=== PATIENT | female | born 2000 | race Two or more races ===

== ENCOUNTER → 2024-09-10 | Outpatient (CLI) | payer MEDICAID, SELFPAY ==
--- NOTE | 2024-09-10 16:21 | XR_ITS ---
Examination: Wrist, right 3 views Technique: Wrist AP, oblique, lateral 3 views Date and time of exam: September 10, 2024 1625 hrs. Indications: Sports injury to the wrist May 2024 with persistent pain Findings: No acute fracture No dislocation No foreign body Impression: No acute fracture
--- NOTE | 2024-09-10 16:21 | XR_ITS ---
Examination: Hand, right 3 views Technique: Hand AP, oblique, lateral 3 views Date and time of exam: September 10, 2024 1625 hrs. Indications: Sports injury to the hand May 2024 with persistent pain Findings: No acute fracture No dislocation No foreign body Impression: No acute fracture
== END | disposition home or self-care (01) ==
PROVIDERS: PCP Physician Assistant Medical; Referring Provider Nurse Practitioner Gerontology; Visit Provider Nurse Practitioner Gerontology
DX: M79.641 Pain in right hand (principal); M25.531 Pain in right wrist; S69.91XS Unspecified injury of right wrist, hand and finger(s), sequela; Y93.79 Activity, other specified sports and athletics
CPT/HCPCS: 73110; 73130

== ENCOUNTER 2024-12-05 14:51 | Outpatient (RCR) | payer MEDICAID, SELFPAY | END 2024-12-12 23:59 | disposition home or self-care (01) | LOC: CPTX 14:51 | PROVIDERS: PCP Surgery Surgery of the Hand; Referring Provider Surgery Surgery of the Hand; Visit Provider Surgery Surgery of the Hand | DX: Z53.8 Procedure and treatment not carried out for other reasons (principal) ==

== ENCOUNTER 2025-01-08 10:30 | Outpatient (RCR) | payer MEDICAID, SELFPAY ==
--- NOTE | 2024-12-16 11:42 | PTNOTE_ITS ---
PT OP Initial Eval Patient Information Outpatient Physical Therapy Treatment Date: 12/16/24 Visit Reasons: RT hand surgery Medical Diagnosis: [id number]; m79.641 Treatment Dx #1: Right Hand Pain Treatment Dx #2: Right 1st Digit Mobility Deficits Start of Care: 12/16/24 Date of Onset: 10/31/24 Smoking Status Smoking Status: Never smoker Initial Assessment Subjective: Pt is a 24 y/o female s/p right thumb UCL reconstruction 10/31/24 due to volleyball injury. Pt still has pain (4/10) with activities. Pt has limitation with lifting, gripping, chores, self care, cooking, cleaning, work duties, and performing recreational activities. 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 Pt will benefit from physical therapy to increase ROM, strength, and work on hand dexterity Short Term and Longterm Goals 1) Increase right thumb AROM WFL in 8 wks to be able to perform chores 2) Decrease hand pain to 2/10 in 8 wks to be able to perform self care activities 3) Increase right rn psychiatric strength to 50 lbs in 8 wks to be able to perform gripping activities 4) Increase wrist MMTs grossly to 4/5 in 8 wks to be able to perform recreational activities 5) Indep with HEP Treatment Plan 1) Manual Therapy 2) Therapeutic Activities 3) Therapeutic Exercises 4) Modalities (ice, heat) Frequency and Duration: 2 x wk for 8 wks Certification Dates: 12/16/24 to 03/18/25 Procedure Charges OP PT Eval Mod Complex 30 minutes: Yes
--- NOTE | 2024-12-18 12:02 | PT.ODAYNRPT ---
PT Outpatient Daily Note OP Daily Note Outpatient Physical Therapy Treatment Date: 12/18/24 Visit Reasons: RT hand surgery Subjective: Pt's hand and thumb is stiff. Pt mentioned she was very sore after last session. Objective: Please see flow chart for list of ther ex performed Assessment: pain with thumb PROM, however, able to tolerate ~ 5 mins. Post ice helped with pain and soreness Plan: Continue with PT Length of Time (minutes) of Treatment: 30 Minutes Procedure Charges Therapeutic Exercise 30 minutes: Yes
--- NOTE | 2024-12-24 13:59 | PT.ODAYNRPT ---
PT Outpatient Daily Note OP Daily Note Outpatient Physical Therapy Treatment Date: 12/24/24 Visit Reasons: RT hand surgery Subjective: Pt reports R hand is doing ok, still has difficulty with opposition. Objective: Please see flow sheet for ther ex list. Assessment: Performed PROM to R thumb withing pt tolerance. Plan: Continue with POC. Length of Time (minutes) of Treatment: 30 Minutes Procedure Charges Therapeutic Exercise 30 minutes: Yes
--- NOTE | 2024-12-30 13:22 | PT.ODAYNRPT ---
PT Outpatient Daily Note OP Daily Note Outpatient Physical Therapy Treatment Date: 12/30/24 Visit Reasons: RT hand surgery Subjective: Pt reports R hand is doing ok, still feels thumb is stiff. Objective: Please see flow sheet for ther ex list. Assessment: Pt tolerated scar mobs with minimal tenderness. Plan: Continue with POC. Length of Time (minutes) of Treatment: 30 Minutes Procedure Charges Therapeutic Exercise 30 minutes: Yes
--- NOTE | 2025-01-01 11:59 | PT.ODAYNRPT ---
PT Outpatient Daily Note OP Daily Note Outpatient Physical Therapy Treatment Date: 01/01/25 Visit Reasons: RT hand surgery Subjective: Pt's hand sore after last session. Pt mention her thumb feels stiff . Objective: Please see flow chart for list of ther ex performed Assessment: improved thumb opposition AROM. Pt continue to exhibit 1st digit DIP hypomobilty leading to limited DIP flexion AROM Plan: Continue with PT Length of Time (minutes) of Treatment: 30 Minutes Procedure Charges Therapeutic Exercise 30 minutes: Yes
--- NOTE | 2025-01-08 11:47 | PT.ODAYNRPT ---
PT Outpatient Daily Note OP Daily Note Outpatient Physical Therapy Treatment Date: 01/08/25 Visit Reasons: RT hand surgery Subjective: Pt's thumb is feeling a little better. Pt can move it more with less pain. grasping for large items are getting easier. Objective: Please see flow chart for list of ther ex performed Assessment: slowly progressing with thumb flexion DIP allowing her to grasp middle section of the cone better while performing the exercises Plan: Continue with PT Length of Time (minutes) of Treatment: 30 Minutes Procedure Charges Therapeutic Exercise 30 minutes: Yes
== END 2025-01-12 23:59 | disposition home or self-care (01) ==
LOC: CPTX 10:30
PROVIDERS: PCP Surgery Surgery of the Hand; Referring Provider Surgery Surgery of the Hand; Visit Provider Surgery Surgery of the Hand
DX: M79.641 Pain in right hand (principal); R53.1 Weakness; S53.31XD Traumatic rupture of right ulnar collateral ligament, subsequent encounter; X58.XXXD Exposure to other specified factors, subsequent encounter
CPT/HCPCS: 97110; 97162

== ENCOUNTER 2025-02-03 09:30 | Outpatient (RCR) | payer MEDICAID, SELFPAY ==
--- NOTE | 2025-01-15 11:41 | PT.ODAYNRPT ---
PT Outpatient Daily Note OP Daily Note Outpatient Physical Therapy Treatment Date: 01/15/25 Visit Reasons: right hand surgery Subjective: Pt reports R hand is doing better but notices she still can not open her thumb all the way. Objective: Please see flow sheet for ther ex list. Assessment: Working on cone stack exercise to work toward functional gripping and work no thumb extension. Plan: Continue with POC. Length of Time (minutes) of Treatment: 30 Minutes Procedure Charges Therapeutic Exercise 30 minutes: Yes
--- NOTE | 2025-01-21 12:55 | PT.ODAYNRPT ---
PT Outpatient Daily Note OP Daily Note Outpatient Physical Therapy Treatment Date: 01/21/25 Visit Reasons: right hand surgery Subjective: Pt's thumb is not as sore and stiff lately. Pt has been able to grab light object with less difficulty Objective: Please see flow chart for list of ther ex performed Assessment: improving with 1st digit AROM in all plane. Advancing patient with resistance exercises with good tolerance Plan: Continue with PT Length of Time (minutes) of Treatment: 30 Minutes Procedure Charges Therapeutic Exercise 30 minutes: Yes
--- NOTE | 2025-01-26 11:32 | PTNOTE_ITS ---
PT Outpatient Daily Note OP Daily Note Outpatient Physical Therapy Treatment Date: 01/26/25 Visit Reasons: right hand surgery Subjective: Pt's thumb is less stiff and notice she can bend it more. 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
--- NOTE | 2025-01-28 11:19 | PT.ODAYNRPT ---
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 Pt has follow up with surgeon next week. Objective: Please see flow sheet for ther ex list. Assessment: Progressing functional strengthening interventions, pt tolerated well. Plan: Continue with poC. Length of Time (minutes) of Treatment: 30 Minutes Procedure Charges Therapeutic Exercise 30 minutes: Yes
--- NOTE | 2025-02-03 10:13 | PT.ODAYNRPT ---
PT Outpatient Daily Note OP Daily Note Outpatient Physical Therapy Treatment Date: 02/03/25 Visit Reasons: right hand surgery Subjective: Pt reports progress with hand but still does not feel like thumb strength and ROm is where she would like. Objective: Please see flow sheet for ther ex list. Assessment: Continue focus on restoring 1st digit ROM and functional strength for pt to be able to perform ADLs and work related tasks with less difficulty. Plan: Continue with poC. Length of Time (minutes) of Treatment: 30 Minutes Procedure Charges Therapeutic Exercise 30 minutes: Yes
== END 2025-02-11 23:59 | disposition home or self-care (01) ==
LOC: CPTX 09:30
PROVIDERS: PCP Surgery Surgery of the Hand; Referring Provider Surgery Surgery of the Hand; Visit Provider Surgery Surgery of the Hand
DX: M79.641 Pain in right hand (principal); R53.1 Weakness; S53.31XD Traumatic rupture of right ulnar collateral ligament, subsequent encounter; X58.XXXD Exposure to other specified factors, subsequent encounter
CPT/HCPCS: 97110

== ENCOUNTER 2025-02-13 10:00 | Outpatient (RCR) | payer MEDICAID, SELFPAY ==
--- NOTE | 2025-02-13 12:48 | PTNOTE_ITS ---
PT OP Progress/Discharge Note Date of Service: 02/13/25 Progress Note/DC Note Progress Note/Discharge Note: Progress Note Patient Information Visit Reasons: right thumb pain Medical Diagnosis: [id number]; m79.641 Treatment Dx #1: Right Hand Pain Treatment Dx #2: Right Hand Weakness Service Continue Service or Discharge: Continue Service Certification Date Certification Dates: 02/13/25 to 05/16/25 Status Subjective: Pt's hand is much better. Pt mentioned she can move the thumb with less limitation. Pt still notice weakness leading to difficulty with gripping, lifting, chores, self care, and performing recreational activities. Objective: Right Wrist AROM: all motions are WNL Right Wrist MMTs: grossly 3+/5 Right 1st Digit AROM: all motions are WFL [place] Strength L: 95 lbs R: 40 lbs Smalls Pinch L: 18 lbs R: 2 lbs Assessment: Pt demonstrate improved right wrist mobility and strength, however, still not functional to perform certain ADLs. Pt will continue to benefit from physical therapy to increase ROM, strength, and work on hand dexterity Plan: Continue with PT/POC and 12 sessions (2 x wk for 6 wks) Procedure Charges Therapeutic Exercise 30 minutes: Yes
--- NOTE | 2025-03-17 15:17 | PT.ODS1RPT ---
PT OP Progress/Discharge Note Date of Service: 03/17/25 Progress Note/DC Note Progress Note/Discharge Note: DC Note Patient Information Visit Reasons: right thumb pain Service Discharge Date: 03/17/25 Status Assessment: Pt has been seen for 12 visits (eval + 11 visits). Pt last treated on 02/13/25. At this time Pt will be d/c from care due to no further auth. Pt did not meet set goals in therapy; thank you for your referrals.
== END 2025-03-14 23:59 | disposition home or self-care (01) ==
LOC: CPTX 10:00
PROVIDERS: PCP Surgery Surgery of the Hand; Referring Provider Surgery Surgery of the Hand; Visit Provider Surgery Surgery of the Hand
DX: M79.641 Pain in right hand (principal); R53.1 Weakness; S53.31XD Traumatic rupture of right ulnar collateral ligament, subsequent encounter; X58.XXXD Exposure to other specified factors, subsequent encounter
CPT/HCPCS: 97110